=== PATIENT | female | born 1945 | race Caucasian/White ===

== ENCOUNTER → 2020-06-07 | Outpatient (CLI) | payer MEDICARE, OTHER | LOC: MC.RAD 10:52 | DX: R92.8 Other abnormal and inconclusive findings on diagnostic imaging of breast (principal) ==

== ENCOUNTER → 2020-06-20 | Outpatient (CLI) | payer MEDICARE, OTHER ==
[~2020-06-20] MED LIST: ASPIRIN 81M81 MG/TA2 PO; CALCIUM 600 PLU1 TAB PO; CELEXA40 MG PO; COZAAR100 MG PO; D3-5050000 IU PO; EPA FISH OIL1000 MG PO; GLUCOPHAGE500 MG/TAB PO; MASON NATURAL S1 CAP; NORCO 325 MG-51 TAB PO; ZOCOR 10MG10 MG PO; ZYRTEC5 MG PO
== END ==
LOC: MC.RAD 09:53
DX: R92.0 Mammographic microcalcification found on diagnostic imaging of breast (principal); N62 Hypertrophy of breast; Z98.82 Breast implant status

== ENCOUNTER 2020-07-04 09:58 | Day surgery (SDC) | payer MEDICARE, OTHER ==
[~2020-07-04] VITALS: Ht 160 cm; Wt 92.0 kg
[2020-07-04 09:09] VITALS: BP 148/61; PULSE 84; TEMP 98.7
[2020-07-04 12:19] VITALS: BP 140/66; PULSE 75; TEMP 98.4
[2020-07-04] MEDS ORDERED: ZOCOR 10MG10 MG PO (12:35)
[2020-07-04] MEDS ORDERED: GLUCOPHAGE500 MG/TAB PO (12:36)
[2020-07-04] MEDS ORDERED: COZAAR100 MG PO (12:37)
[2020-07-04] MEDS ORDERED: CELEXA40 MG PO (12:38)
[2020-07-04] MEDS ORDERED: CALCIUM 600 PLU1 TAB PO (12:39)
[2020-07-04] MEDS ORDERED: EPA FISH OIL1000 MG PO (12:41)
[2020-07-04] MEDS ORDERED: D3-5050000 IU PO (12:42)
[2020-07-04] MEDS ORDERED: ASPIRIN 81M81 MG/TA2 PO (12:42)
[2020-07-04] MEDS ORDERED: MASON NATURAL S1 CAP (12:43)
[2020-07-04] MEDS ORDERED: ZYRTEC5 MG PO (12:45)
[2020-07-04 13:54] VITALS: BP 122/64; PULSE 83; TEMP 97.6
[2020-07-04] MEDS ORDERED: NORCO 325 MG-51 TAB PO (13:59)
[2020-07-04 14:15] VITALS: BP 131/69; PULSE 76
[2020-07-04 14:30] VITALS: BP 137/54; PULSE 72
--- NOTE | 2020-07-04 15:25 | NUR ---
PT RETURNED FROM THE OR INTO BAY#2. PT WAS ALERT, SLEEPY, ORIENTATED X3. WAS IN ROOM AT BEDSIDE. LUNGS CLEAR, HRR, BOWEL SOUNDS CONTINUE BE HYPOACTIVE. PT DENIES NAUSEA, VOMITING OR PAIN. PT REQUESTS WATER. WILL CONT TO MONITOR. CALL LIGHT IN REACH.
--- NOTE | 2020-07-04 15:33 | NUR ---
PT EATING CHOCOLATE PUDDING AND TOLERATING IT WELL. DENIES NAUSEA OR PAIN AT THIS TIME. AT BEDSIDE. DRESSING TO THE RIGHT BREAST CLEAN AND DRY. WILL CONT TO MONITOR.
--- NOTE | 2020-07-04 15:36 | NUR ---
DRESSING CONTINUES TO BE DRY AND INTACT. PT CONTINUES TO TOLERATE FLUIDS. #22 DC'D TO RIGHT WRIST WITHOUT DIFFICULTY. DISMISSAL INSTRUCTIONS GIVEN TO PATIENT AND . NEITHER HAS QUESTIONS ABOUT MATERIAL. RETURN APPT MADE FOR 1 WEEK PER ORDERS. DISMISSAL INSTRUCTIONS SIGNED. PT WAS TAKEN OUT TO FAMILY VEHICLE PER . , ANA WAS DRIVING.
== END 2020-07-04 15:45 | disposition home or self-care (01) ==
LOC: SDCO
DX: D05.01 Lobular carcinoma in situ of right breast (principal); I10 Essential (primary) hypertension; E11.9 Type 2 diabetes mellitus without complications; E78.00 Pure hypercholesterolemia, unspecified; Z20.822 Contact with and (suspected) exposure to COVID-19; Z79.84 Long term (current) use of oral hypoglycemic drugs; Z80.42 Family history of malignant neoplasm of prostate; Z79.899 Other long term (current) drug therapy; Z79.82 Long term (current) use of aspirin
CPT/HCPCS: A4648; J0690; J2250; J2704; J2795; J3010

== ENCOUNTER → 2021-07-22 | Outpatient (CLI) | payer MEDICARE | LOC: MC.RAD 09:19 | DX: Z12.31 Encounter for screening mammogram for malignant neoplasm of breast (principal); N64.89 Other specified disorders of breast ==

== ENCOUNTER → 2021-07-24 | Outpatient (CLI) | payer MEDICARE | LOC: MC.RAD 13:52 | DX: N64.59 Other signs and symptoms in breast (principal) ==